=== PATIENT | male | born 1970 | race Caucasian/White ===

== ENCOUNTER 2018-03-25 23:55 | Emergency (ER) | payer OTHER ==
[~2018-03-25] VITALS: Ht 182.8 cm; Wt 95.3 kg
[~2018-03-25 23:55] MED LIST: ADDERALL20 MG PO; AUGMENTIN 875875 MG PO; DARVOCET N 1001 TAB PO; DAYPRO600 M1 PO; IBU800 MG PO; ULTRAM50 MG PO; VICODIN 5/500 505 MG PO; VISTARIL50 MG PO
[2018-03-26] MEDS ORDERED: CEPHALEXIN500 M1 PO (00:52)
== END 2018-03-26 01:35 | disposition home or self-care (01) ==
LOC: ED 23:55
DX: S81.012A Laceration without foreign body, left knee, initial encounter (principal); Z79.899 Other long term (current) drug therapy; W00.0XXA Fall on same level due to ice and snow, initial encounter; Y93.89 Activity, other specified; Y92.89 Other specified places as the place of occurrence of the external cause; Y99.8 Other external cause status

== ENCOUNTER 2024-02-09 16:53 | Emergency (ER) | payer SELFPAY ==
[~2024-02-09] VITALS: Ht 182.8 cm; Wt 83.0 kg
[~2024-02-09 16:53] MED LIST changes: +CEPHALEXIN500 M1 PO
[2024-02-09] MEDS ORDERED: LORazepam 2 MG/ML VIAL IV ONE (17:05)
[2024-02-09] MEDS ORDERED: SODIUM CHLORIDE 0.9% 1,000 ML IV ONE (17:05)
[2024-02-09] MEDS ORDERED: FAMOTIDINE 50 ML IV ONE (17:05)
[2024-02-09] MEDS ORDERED: Ondansetron Hydrochloride 4 MG/2 ML VIAL IV ONE (17:05)
[2024-02-09 17:24] LABS: BASO % 0.6 % (0.0-1.0); EOS # 0.1 10*3/uL (0.0-0.4); EOS % 1.1 % (1.0-4.0); MEAN CELL VOLUME 96.8 fl (80.0-94.0); MEAN CORPUSCULAR HGB 32.7 pg (27.0-31.0); MEAN CORPUSCULAR HGB CONC 33.8 g/dl (33.0-37.0); MEAN PLATELET VOLUME 10.8 fl (9.6-12.3); MONO # 0.4 10*3/uL (0.1-1.0); MONO % 5.4 % (3.0-9.0); NEUT # 4.3 10*3/uL (2.3-7.9); NEUT % 65.9 % (47.0-73.0); PLATELET COUNT AUTOMATED 202 10*3/uL (130-400); RED BLOOD COUNT 4.96 10*6/uL (4.50-5.90); RED CELL DISTRI WIDTH 12.1 % (0-14.5); WHITE BLOOD COUNT 6.5 10*3/uL (4.8-10.8)
[2024-02-09 17:52] LABS: BUN 13 mg/dl (9-23); CHLORIDE 106 mmol/L (98-107); POTASSIUM 3.3 mmol/L (3.4-5.1)
[2024-02-09] MEDS ORDERED: POTASSIUM CHLORIDE 20 MEQ TAB PO ONE (18:00)
== END 2024-02-09 18:18 | disposition home or self-care (01) ==
LOC: ED 16:53
PROVIDERS: Emergency Medicine
DX: F41.9 Anxiety disorder, unspecified (principal); E87.6 Hypokalemia; R11.0 Nausea

== ENCOUNTER 2024-09-21 15:51 | Emergency (ER) | payer SELFPAY ==
[~2024-09-21] VITALS: Ht 182.8 cm; Wt 101.7 kg
[2024-09-21] MEDS ORDERED: Acetaminophen/Oxycodone 5 MG/325 MG TABLET PO ONE (16:05)
[2024-09-21] MEDS ORDERED: diazePAM 5 MG TAB PO ONE (16:05)
[2024-09-21] MEDS ORDERED: CYCLOBENZAPRINE10 MG PO (16:20)
[2024-09-21] MEDS ORDERED: MELOXICAM15 MG PO (16:20)
== END 2024-09-21 16:23 | disposition home or self-care (01) ==
LOC: ED 15:51
DX: M54.50 Low back pain, unspecified (principal)